=== PATIENT | female | born 2000 | race Caucasian/White ===

== ENCOUNTER → 2022-04-07 | Outpatient (CLI) | payer BC | END | disposition home or self-care (01) | LOC: LABWHC1 13:06 | PROVIDERS: ATTEND Obstetrics & Gynecology | DX: Z36.9 Encounter for antenatal screening, unspecified (principal) | CPT/HCPCS: 36415; 82950 ==

== ENCOUNTER 2022-07-03 15:35 | Outpatient (CLI) | payer BC ==
[2022-07-03 16:59] VITALS: BP 139/84; PULSE 126; RESP 17; TEMP 97.1
--- NOTE | 2022-07-04 00:23 | P.MSEPDOC ---
Presenting Problems - Arrival Data Date of Arrival on Unit: 07/03/22 Time of Arrival on Unit: 15:35 Mode of Transport: Ambulatory - Complaint OB-Reason for Admission/Chief Complaint: Rule Out SROM Comment: pt thinks she had SROM at 1430, Medical History - Information : 1 Para: 0 Term: 0 : 0 Abortions: Spontaneous or Elective: 0 Number of Living Children: 0 - Gestational Age Gestational Age by LANDEN (wks/days): 38 Weeks and 1 Days Review of Systems - Review of Systems Constitutional: No problems Breast: No problems ENT: No problems Cardiovascular: No problems Respiratory: No problems Gastrointestinal: No problems Genitourinary: No problems Musculoskeletal: No problems Neurological: No problems Skin: No problems Vital Signs - Temperature Temperature: 97.1 F Temperature Source: Temporal Artery Scan - Pulse Right Brachial Pulse Rate: 126 Pulse Assessment Method: Automatic Cuff - Respirations Respiratory Rate: 17 Oxygen Delivery Method: Room Air - Blood Pressure Right Arm Blood Pressure: 139/84 Blood Pressure Mean: 102 Blood Pressure Source: Automatic Cuff Medical Screen Scoring - Cervical Exam Dilation (cm): 4 Effacement (%): 70 Station: -2 Membranes: Intact - Uterine Contractions Frequency From (mins): 0 - Assessment - Baby A Baseline FHR: 135 Heart Rate - NICHD Category: Category I (Normal) NST: Reactive Physician Notification - Physician Notified Physician Notified Date: 07/03/22 Physician Notified Time: 16:20 Physician: Roz Garcia Order Received: Yes - Notification Comment Comment: pt's pulse down to 90's before she was discharged, no cervical change from jun 27 in the office, reactive nst, no contractions, has appt with Dr. Rufus arellano 07/04/22 Maternal Triage Index - Maternal Triage Index Presenting for scheduled procedure w/no complaint: No - Stat/Priority 1 Stat Priority 1: No - Urgent/Priority 2 Urgent Priority 2: No - Prompt/Priority 3 Prompt Priority 3: Yes Criteria Met for Priority 3: pt presented to triage Disposition - Disposition OB Disposition: Discharge to home I agree with the RN Medical Screening Exam: Yes Physician's MSE Comment: I have neither seen nor examined the patient Case reviewed; plan agreed upon as documented in EMR&OBIX.: Yes Diagnosis: RELATED CONDITIONS, UNSPECIFIED, THIRD TRIMESTER
== END 2022-07-03 16:30 | disposition home or self-care (01) ==
LOC: FBPOP 15:35
PROVIDERS: ATTEND Obstetrics & Gynecology
DX: O26.893 Other specified pregnancy related conditions, third trimester (principal); Z3A.38 38 weeks gestation of pregnancy
CPT/HCPCS: 59025; 84112; 99213

== ENCOUNTER 2022-07-10 21:53 | Inpatient (IN) | payer BC ==
[~2022-07-10 21:53] MED LIST: ROPIVACAINE 5 MG/ML 20 ML AMPULE ONE; SODIUM CHLORIDE 0.9% 100 ML BAG ONE; fentaNYL (PF) 50 MCG/ML 5 ML AMP ONE
[2022-07-10] MEDS ORDERED: LIDOCAINE 0.5% (PF) 5 MG/ML (50 ML SDV) SQ PRN (22:55)
[2022-07-10] MEDS ORDERED: OXYTOCIN 30 UNITS/500 ML NS 30 UNIT in SALINE 1 500ML.BAG IV SCH (22:55)
[2022-07-10] MEDS ORDERED: TERBUTALINE 1 MG/ML VIAL SQ PRN (22:55)
[2022-07-10] MEDS: LACTATED RINGERS 1,000 ML IV SCH (22:57)
[2022-07-10] MEDS ORDERED: BUTORPHANOL 1 MG/ML 1 ML VIAL IV PRN (23:05)
[2022-07-10 23:09] LABS: Basophils % (A) 0 %; Eosinophils # (A) 0.1 k/uL (0-0.7); Eosinophils % (A) 1 %; HCT 36.9 % (34.0-46.0); Lymphocytes % (A) 20 %; MCH 29.3 pg (25.0-35.0); MCHC 35.1 g/dL (31.0-37.0); MCV 83.3 fL (80.0-100.0); Mean Platelet Volume 11.1; Monocytes # (A) 0.4 k/uL (0-1.0); Monocytes % (A) 4 %; Neutrophils # (A) 7.3 k/uL (1.3-7.7); Neutrophils % (A) 72 %; Platelet Count 188 k/uL (150-450); RBC 4.43 m/uL (3.80-5.40); RDW 13.7 % (11.5-15.5); WBC 10.2 k/uL (3.8-10.6)
[2022-07-11] MEDS: LACTATED RINGERS 1,000 ML IV SCH ×2 (05:30→20:09)
[2022-07-11] MEDS ORDERED: PENICILLIN G POTASSIUM 5,000,000 UNIT in DEXTROSE 5% IN WATER 100 ML IVPB STA ×2 (07:53)
--- NOTE | 2022-07-11 08:17 | P.HPOB ---
History of Present Illness H&P Date: 07/11/22 Chief Complaint: My water broke at home, clear fluid This is a 22-year-old female 1 para 0 EDC 07/14/2022 at 39-3/7 weeks' gestation who presented to the hospital last night with a history of her water breaking at home, clear fluid. Rare mild uterine contractions to follow. She was admitted through the night and spontaneous labor commenced. Past medical history is unremarkable. Past surgical history tonsillectomy, wisdom teeth extracted. Current medications vitamins daily. ALLERGIES none known. Family history significant for kidney failure, diabetes, breast cancer, congestive heart failure. Social history patient is , her is present. She works for [employer] in town. She denies tobacco or alcohol use. history significant for blood type A positive, rubella status immune. Pap smear, gonorrhea and chlamydia cultures, urine culture, hepatitis B surface antigen, HIV testing, group B strep cultures all negative. One-hour Glucola 134. On exam patient is 5 foot 2 inches, 205 pounds, blood pressure 118/70. General physical exam is within normal limits. Chest is clear in all umaña. Cervix at time of this dictation is 6 cm dilated, 80% effaced, -2 station, vertex presentation. Uterine contractions are occurring regularly every 3-4 minutes apart, strong in intensity. Patient is requesting epidural at this time. heart rate is reassuring, consistent with reactive NST. Impression: 39-3/7 weeks intrauterine , active spontaneous labor. All signs reassuring. Plan: We will utilize penicillin G at this time as membrane rupture is greater than 12 hours in the past. Continue close maternal and surveillance. Epidural will be placed per her request. Anticipate normal spontaneous vaginal delivery. Review of Systems Constitutional: Reports as per HPI Past Medical History Past Medical History: No Reported History History of Any Multi-Drug Resistant Organisms: None Reported Past Surgical History: Tonsillectomy Past Anesthesia/Blood Transfusion Reactions: No Reported Reaction Past Psychological History: No Psychological Hx Reported Smoking Status: Never smoker Past Alcohol Use History: None Reported Past Drug Use History: None Reported - Past Family History Father Family Medical History: Congestive Heart Failure (CHF), Diabetes Mellitus Additional Family Medical History / Comment(s): Kidney failure Medications and Allergies Home Medications Medication Instructions Recorded Confirmed Type Vit No.179/Iron/Folic 1 each PO DAILY 07/03/22 07/10/22 History [ Tablet] Allergies Allergy/AdvReac Type Severity Reaction Status Date / Time No Known Allergies Allergy Verified 07/10/22 21:56 Exam Vital Signs Temp Pulse Resp BP Pulse Ox 07/10/22 22:50 98.0 F 118 H 18 134/88 98 Intake and Output 07/10/22 07/11/22 07/11/22 22:59 06:59 14:59 Other: # Voids 3 Weight 92.986 kg 92.986 kg See dictation under HPI please Results Result Diagrams: 07/10/22 22:50 Assessment and Plan Assessment: 39-3/7 weeks intrauterine , spontaneous amniorrhexis at home, active labor at this time. All signs reassuring. Plan: Continue oxytocin per protocol. Continue close maternal and surveillance. Epidural has been requested and anesthesia team is underway. Anticipate normal spontaneous vaginal delivery. Time with Patient: Less than 30
[2022-07-11] MEDS ORDERED: LANOLIN CREAM 5 GM TUBE TOPICAL PRN (12:45)
[2022-07-11] MEDS ORDERED: diphenhydrAMINE 50 MG CAP PO PRN (12:45)
[2022-07-11] MEDS ORDERED: SIMETHICONE 80 MG CHEWABLE PO PRN (12:45)
[2022-07-11] MEDS ORDERED: diphenhydrAMINE 50 MG/ML 1 ML VIAL IVP PRN ×2 (12:45)
[2022-07-11] MEDS ORDERED: ACETAMINOPHEN TAB 325 MG TAB PO PRN (12:45)
[2022-07-11] MEDS ORDERED: HYDROCORTISONE 2.5% RECTAL CREAM 30 GM TUBE RECTAL PRN (12:45)
[2022-07-11] MEDS ORDERED: diphenhydrAMINE ELIXIR 25 MG/10 ML CUP PO PRN (12:45)
[2022-07-11] MEDS ORDERED: BENZOCAINE/MENTHOL SPRAY 1 GM/SPRAY AEROSOL TOPICAL PRN (12:45)
[2022-07-11] MEDS ORDERED: ZOLPIDEM 5 MG TAB PO PRN (12:45)
[2022-07-11] MEDS ORDERED: diphenhydrAMINE 25 MG CAP PO PRN (12:45)
--- NOTE | 2022-07-11 12:45 | P.PROBDLV ---
Vaginal Delivery Note - . Vaginal Delivery Note: This is a 22-year-old female 1 para 0 EDC 07/14/2022 at 39-3/7 weeks' gestation who presented with spontaneous amniorrhexis which occurred at home, clear fluid. remarkable for negative group B strep cultures, rubella status immune, blood type B positive. Please see dictated history and physical for details. Oxytocin augmentation was started and titrated. Epidural was placed per her request. She progressed well through the first stage of labor and became completely dilated at 1136 hours. Perineal body was prepped and draped in usual sterile fashion. Please note that heart tones were reassuring throughout the first and second stages of labor. Patient pushed well, perineal body was prepped and draped in usual sterile fashion. Infant's head delivered occiput anterior and restituted accordingly. There was no nuchal cord noted. The right or anterior shoulder was delivered easily from underneath the pubic symphysis at which time the oropharynx, nasopharynx, and external nares were all bulb suctioned. Patient was officially delivered of a liveborn male infant at 12 hours. Umbilical cord was doubly clamped and ligated, he was handed to waiting nurses for evaluation where scores of 9 and 9 at one and 5 minutes respectively were given. Placenta delivered spontaneously, it was inspected and noted to be intact with trivascular cord at 12 3 hours. Uterus is then massaged. Careful inspection of the cervix, vagina, perineum, periurethral, and perirectal areas revealed a small second-degree perineal laceration. This was easily repaired in the usual fashion using 3-0 repeat suture. Total estimated blood loss 250 mL's. Infant weight 10/30/2004 grams or 7 lbs. 12 oz. Patient is requesting circumcision for her son.
[2022-07-11] MEDS: IBUPROFEN 600 MG TAB PO SCH (14:12)
[2022-07-11] MEDS: SENNOSIDES-DOCUSATE SODIUM 1 EACH TAB PO SCH (20:06)
[2022-07-11] MEDS: PENICILLIN G POTASSIUM 2,500,000 UNIT in DEXTROSE 5% IN WATER 100 ML IVPB SCH ×4 (20:08→20:09)
[2022-07-12] MEDS: PENICILLIN G POTASSIUM 2,500,000 UNIT in DEXTROSE 5% IN WATER 100 ML IVPB SCH ×4 (01:51→05:00)
[2022-07-12] MEDS: LACTATED RINGERS 1,000 ML IV SCH (01:51)
[2022-07-12] MEDS: IBUPROFEN 600 MG TAB PO SCH ×4 (01:51→20:32)
--- NOTE | 2022-07-12 09:22 | P.PN ---
Subjective Progress Note Date: 07/12/22 Principal diagnosis: day #1 Slept well. Minimal pain. No complaints. [place] in the nursery for antibiotic therapy. Objective - Vital Signs Vital signs: Vital Signs Temp 98.6 F 07/12/22 04:00 Pulse 85 07/12/22 04:00 Resp 16 07/12/22 04:00 BP 109/66 07/12/22 04:00 Pulse Ox 96 07/12/22 04:00 FiO2 Intake & Output 07/11/22 07/12/22 07/12/22 18:59 06:59 18:59 Output Total 1025 Balance -1025 Output: Urine 600 Estimated Blood Loss 250 Output, Quantitative 175 Blood Loss Other: # Voids 1 - Constitutional General appearance: Present: average body habitus, cooperative - EENT Eyes: Present: PERRLA ENT: Present: hearing grossly normal - Neck Thyroid: bilateral: normal size - Respiratory Respiratory: bilateral: CTA - Cardiovascular Rhythm: regular - Gastrointestinal General gastrointestinal: Present: normal bowel sounds - Integumentary Integumentary: Present: normal - Neurologic Neurologic: Present: CNII-XII intact - Musculoskeletal Musculoskeletal: Present: gait normal, strength equal bilaterally - Psychiatric Psychiatric: Present: A&O x's 3, appropriate affect, intact judgment & insight - Labs CBC & Chem 7: 07/10/22 22:50 Assessment and Plan Assessment: Doing well day #1 Plan: Continue care. Likely discharge home tomorrow. Circumcision tomorrow as the is on antibiotics at this time. Time with Patient: Less than 30
--- NOTE | 2022-07-12 09:36 | P.MSEPDOC ---
Presenting Problems - Arrival Data Date of Arrival on Unit: 07/10/22 Time of Arrival on Unit: 21:53 Mode of Transport: Ambulatory - Complaint OB-Reason for Admission/Chief Complaint: Rule Out SROM Comment: Pt is a with LANDEN 07/14/22 here at 39.3 weeks of gestation with c/o leaking of clear fluid since 1530. Medical History - Information : 1 Para: 0 Term: 0 : 0 Abortions: Spontaneous or Elective: 0 Number of Living Children: 0 - Gestational Age Gestational Age by LANDEN (wks/days): 39 Weeks and 3 Days Review of Systems - Review of Systems Constitutional: No problems Breast: No problems ENT: No problems Cardiovascular: No problems Respiratory: No problems Gastrointestinal: No problems Genitourinary: No problems Musculoskeletal: No problems Neurological: No problems Skin: No problems Vital Signs - Temperature Temperature: 98.6 F Temperature Source: Oral - Pulse Pulse Oximetery Pulse Rate: 85 Pulse Assessment Method: Pulse Oximetry - Respirations Respiratory Rate: 16 Oxygen Delivery Method: Room Air O2 Sat by Pulse Oximetry: 96 - Blood Pressure Right Arm Blood Pressure: 109/66 Blood Pressure Mean: 80 Blood Pressure Source: Automatic Cuff Medical Screen Scoring - Cervical Exam Dilation (cm): 4 Effacement (%): 80 Membranes: Ruptured - Uterine Contractions Frequency From (mins): 2 Frequency To (mins): 6 Duration From (seconds): 90 Duration To (seconds): 130 Intensity: Mild Resting: Soft to palpation - Assessment - Baby A Baseline FHR: 130 Heart Rate - NICHD Category: Category I (Normal) NST: Reactive Physician Notification - Physician Notified Physician Notified Date: 07/10/22 Physician Notified Time: 22:24 Physician: Nuris Hooper New Order Received: Yes - Notification Comment Comment: Dr. Hooper notified of pt's arrival to triage with c/o leaking of fluid. RN. reported pt status including +AmniSure test, SVE, UC's pattern, and FHTs. Orders to. admit pt, start an IV, Stadol 1mg q2h PRN, and Pitocin at 0630 if needed at that time. Orders confirmed. Maternal Triage Index - Maternal Triage Index Presenting for scheduled procedure w/no complaint: No - Stat/Priority 1 Stat Priority 1: No - Urgent/Priority 2 Urgent Priority 2: No - Prompt/Priority 3 Prompt Priority 3: No - Non-Urgent/Priority 4 Non-Urgent Priority 4: Yes Criteria Met for Priority 4: SROM at 1530 Disposition - Disposition OB Disposition: Admit, LDRP Suite Transferred to:: St 5 I agree with the RN Medical Screening Exam: Yes Case reviewed; plan agreed upon as documented in EMR&OBIX.: Yes Diagnosis: LOUSE-BORNE TYPHUS
[2022-07-12] MEDS: SENNOSIDES-DOCUSATE SODIUM 1 EACH TAB PO SCH ×2 (10:11→21:16)
[2022-07-13] MEDS: IBUPROFEN 600 MG TAB PO SCH ×4 (01:42→13:49)
[2022-07-13] MEDS: SENNOSIDES-DOCUSATE SODIUM 1 EACH TAB PO SCH (08:06)
[2022-07-13 08:09] VITALS: BP 133/84; PULSE 94; RESP 17; TEMP 97.9
--- NOTE | 2022-07-13 08:26 | P.PNOBGVD ---
Subjective - Subjective Principal diagnosis: Normal vaginal delivery Interval history: The patient is doing well this morning and had no acute events overnight. She has no complaints this morning. She reports minimal lochia, passing flatus, having bowel movements, voiding without difficulty, ambulating, and eating/drinking without nausea or vomiting. She is her without difficulty. She denies chest pain, shortness of breathing, fevers, or chills overnight. She denies pain or swelling in the legs. Patient reports: Reports appetite normal, Reports voiding normally, Reports pain well controlled, Reports ambulating normally [place]: doing well, in NICU Objective - Latest Vital Signs Latest vital signs: Vital Signs Temp Pulse Resp BP Pulse Ox 07/13/22 08:00 97.9 F 94 17 133/84 07/13/22 00:00 98.2 F 98 16 105/59 07/12/22 16:00 98.9 F 96 17 114/78 07/12/22 12:17 98.2 F 101 H 14 121/82 07/12/22 09:36 98.6 F 85 16 109/66 96 07/12/22 08:30 98.5 F 101 H 16 133/84 - Exam Extremities: Present: normal Abdomen: Present: normal appearance, soft Uterus: Present: normal, firm Assessment and Plan Assessment: 22 y/o PPD #2 s/p Plan: Meeting all milestones appropriately. Will discharge today. f/u with Dr. Hooper in 6 weeks.
== END 2022-07-13 14:00 | disposition home or self-care (01) | DRG 807 ==
LOC: FBPOP 21:53 → 4FBP 22:21
PROVIDERS: ADMIT Obstetrics & Gynecology; ATTEND Obstetrics & Gynecology
PROC: 10E0XZZ Delivery of Products of Conception, External Approach (ICD-10-PCS; principal; 2022-07-10)
PROC: 0KQM0ZZ Repair Perineum Muscle, Open Approach (ICD-10-PCS; 2022-07-10)
PROC: 4A0HXCZ Measurement of Products of Conception, Cardiac Rate, External Approach (ICD-10-PCS; 2022-07-10)
PROC: 3E033VJ Introduction of Other Hormone into Peripheral Vein, Percutaneous Approach (ICD-10-PCS; 2022-07-10)
DX: O42.02 Full-term premature rupture of membranes, onset of labor within 24 hours of rupture (principal); O70.1 Second degree perineal laceration during delivery; Z37.0 Single live birth; Z3A.39 39 weeks gestation of pregnancy
CPT/HCPCS: 59025; 84112; 85025; 86850; 86900; 86901; 99213